=== PATIENT | male | born 2000 | race African-American/Black ===

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

== ENCOUNTER 2021-03-01 14:26 | Emergency (ER) | payer OTHER, SELFPAY | END 2021-03-01 16:33 | disposition home or self-care (01) | LOC: ERS 14:26 | DX: R11.10 Vomiting, unspecified (principal); J45.909 Unspecified asthma, uncomplicated | CPT/HCPCS: 99283 ==

== ENCOUNTER 2021-03-26 21:37 | Emergency (ER) | payer OTHER ==
[2021-03-27 19:32] LABS: SARS-CoV-2 PCR by NAA Not Detected (NotDetected)
== END 2021-03-26 23:02 | disposition home or self-care (01) ==
LOC: ERS 21:37
DX: R05.9 Cough, unspecified (principal); Z20.822 Contact with and (suspected) exposure to COVID-19
CPT/HCPCS: 99284; U0003; U0005